=== PATIENT | female | born 1980 ===

== ENCOUNTER 2017-07-06 17:58 | Emergency (ER) | payer OTHER ==
[2017-07-06 18:13] VITALS: BMI 42.2
[2017-07-06 18:37] VITALS: RESP 20; O2SAT 100
--- NOTE | 2017-07-06 18:37 | C.PDOC ---
History Of Present Illness 37 year old female, who is currently ,LMP was 05/24 and presents to the ED for evaluation of vaginal spotting, right-sided flank pain, and increased urinary frequency which began a couple days ago. Patient states she was evaluated at her doctor's office last week, had a positive test, and underwent an ultrasound (results unknown). Patient notes her current bleeding is similar to that of her usual menstrual period and reports passing some clots. She denies passing any tissue material. Patient is and her LMP was 05/24. Patient denies fever, chills, nausea, and vomiting. Chief Complaint (Nursing): Female Genitourinary History Per: Patient History/Exam Limitations: no limitations Onset/Duration Of Symptoms: Days Current Symptoms Are (Timing): Still Present Quality Of Discomfort: "Pain" Associated Symptoms: Urinary Symptoms (urinary frequency ), Other (right flank pain ). denies: Fever, Chills, Nausea, Vomiting Additional History Per: Patient Abnormal Vaginal Bleeding: Yes Last Menstral Period: 05/24 : 2 Para: 1 Past Medical History Reviewed: Historical Data, Nursing Documentation, Vital Signs Vital Signs: Last Vital Signs Temp 98.9 F 07/06/17 21:54 Pulse 81 07/06/17 21:54 Resp 20 07/06/17 21:54 BP 103/69 07/06/17 21:54 Pulse Ox 100 07/06/17 21:54 - Medical History PMH: No Chronic Diseases Surgical History: No Surg Hx - [facility] Procedures EXTRACTION OF POC, LOW CERVICAL, OPEN APPROACH (04/23/16) Family History: States: Unknown Family Hx Review Of Systems Constitutional: Negative for: Fever, Chills Gastrointestinal: Negative for: Nausea, Vomiting Genitourinary: Positive for: Frequency, Other (vaginal spotting ) Musculoskeletal: Positive for: Other (right flank pain ) Physical Exam - Physical Exam Appears: Non-toxic, No Acute Distress Skin: Normal Color, Warm, Dry Head: Atraumatic, Normacephalic Eye(s): bilateral: Normal Inspection Oral Mucosa: Moist Neck: Supple Chest: Symmetrical, No Deformity, No Tenderness Cardiovascular: Rhythm Regular, No Murmur Respiratory: Normal Breath Sounds, No Rales, No Rhonchi, No Wheezing Gastrointestinal/Abdominal: Soft, No Tenderness, No Guarding, No Rebound, No Other (lower abdominal tenderness) Back: No CVA Tenderness, Other (minimal right flank discomfort ) Extremity: Normal ROM, Capillary Refill (less than 2 seconds ) Neurological/Psych: Oriented x3, Normal Speech, Normal Cognition ED Course And Treatment - Laboratory Results Result Diagrams: 07/06/17 19:02 07/06/17 19:02 Medical Decision Making Medical Decision Making: Impression: UTI vs threatened miscarriage Plan: * Bloodwork * urinalysis * OB Transvaginal Ultrasound * reassess and disposition Progress: Will repeat ultrasound and review lab results. Pt with empty uterus on ultrasound.Diif dx includes completed miscarriage versus ectopic.Pt was discussed with Dr Rodríguez who agrees pt can be discharged for f/u with PMD tomorrow.Pt told to come back immediately to the ED if she has any return of abd pain .Pt is currently pain free Disposition - Disposition Disposition: HOME/ ROUTINE Disposition Time: 21:12 Condition: FAIR Additional Instructions: See your hydraulic specialist tomorrow or see Dr Rodríguez tomorrow,If develope any worsening abd pain return to the ED immediately Prescriptions: Cephalexin [Keflex] 500 mg PO TID #21 capsule Instructions: Miscarriage, Ectopic , Dealing With Miscarriage Forms: [employer] ([place]er) Print Language: SUDANESE - Clinical Impression Clinical Impression: Miscarriage, Ectopic , UTI (urinary tract infection) - Scribe Statement The provider has reviewed the documentation as recorded by the Scribe (Radha Nowak) Provider Attestation: All medical record entries made by the Scribe were at my direction and personally dictated by me. I have reviewed the chart and agree that the record accurately reflects my personal performance of the history, physical exam, medical decision making, and the department course for this patient. I have also personally directed, reviewed, and agree with the discharge instructions and disposition.
[2017-07-06 19:06] LABS: BASO # 0.1 K/uL (0.0-0.2); BASO % 0.5 % (0.0-2.0); EOS # 0.2 K/uL (0.0-0.7); EOS % 1.6 % (0.0-4.0); HEMOGLOBIN 12.6 g/dL (11.0-16.0); LYMPH # 3.2 K/uL (1.0-4.3); LYMPH % 28.2 % (20.0-40.0); MEAN CELL VOLUME 85.5 fL (81.0-99.0); MEAN CORPUSCULAR HEMOGLOBIN 28.9 pg (27.0-31.0); MEAN CORPUSCULAR HGB CONC 33.8 g/dL (33.0-37.0); MEAN PLATELET VOLUME 7.8 fL (7.2-11.7); MONO # 0.5 K/uL (0.0-0.8); MONO % 4.5 % (0.0-10.0); NEUT # 7.5 K/uL (1.8-7.0); NEUT % 65.2 % (50.0-75.0); RBC 4.37 Mil/uL (3.80-5.20); RED CELL DISTRIBUTION WIDTH 13.9 % (11.5-14.5); WHITE BLOOD COUNT 11.5 K/uL (4.8-10.8)
[2017-07-06 19:12] LABS: SQUAMOUS EPITHIAL 8 /hpf (0-5); URINE BACTERIA FEW (<OCC); URINE BILIRUBIN NEGATIVE (NEGATIVE); URINE BLOOD 3+ (NEGATIVE); URINE CLARITY Hazy (Clear); URINE COLOR Red (YELLOW); URINE GLUCOSE (UA) NORMAL (Normal); URINE LEUKOCYTE ESTERASE 1+ Leu/uL (Negative); URINE NITRATE NEGATIVE (NEGATIVE); URINE PROTEIN 2+ mg/dL (NEGATIVE); URINE UROBILINOGEN NORMAL mg/dL (0.2-1.0)
[2017-07-06 19:19] LABS: ALB/GLOB RATIO 1.2 (1.0-2.1); ALBUMIN 3.8 g/dL (3.5-5.0); ALT/SGPT 68 U/L (9-52); AST/SGOT 32 U/L (14-36); BLOOD UREA NITROGEN 12 mg/dL (7-17); CALCIUM 9.1 mg/dl (8.6-10.4); GFR AFRICAN-AMERICAN > 60; GFR NON-AFRICAN AMERICAN > 60
--- NOTE | 2017-07-06 20:59 | US ---
EXAM: US , Transvaginal EXAM DATE/TIME: Exam ordered 07/06/2017 6:36 PM CLINICAL HISTORY: 37 years old, female; Pain; complicated by abdominal or pelvic pain; Lower; First trimester; Gestational age or lmp: 05/24/17; ; Additional info: Vag bleeding, pain TECHNIQUE: Real-time transvaginal obstetrical ultrasound of the maternal pelvis and a first trimester with image documentation. Transvaginal imaging was used for better evaluation of the fetus and adnexa. COMPARISON: US - TRANSVAGINAL 2017-07-03 08:13 FINDINGS: Gestation: None Uterus/cervix: Fluid within the endocervical canal at lines a.m. echogenic structure which appears contiguous with the endometrium. The uterus measures 10.3 x 5.7 x 5.8 cm. The endometrial stripe measures 1.4 cm in thickness. The posterior corpus subcapsular fibroid measures 1.4 x 1 x 1.1 cm. A right lateral corpus intramural fibroid measures 1.3 x 1 x 1 cm. Ovaries: The right ovary measures 2.8 x 1.7 x 2.6 cm. complex follicle measuring 1.1 cm seen in the right ovary. This likely represents a corpus luteum cyst Blood flow is seen in the right ovary on color Doppler and pulsed Doppler examination. The left ovary measures 2 x 1.3 x 1.8 cm. Subcentimeter follicles are present. Blood flow seen in the left ovary on color Doppler examination. Free fluid: A small amount of free fluid is noted the anterior to the uterine fundus. IMPRESSION: 1. No evidence of intrauterine . Empty uterus in the face of positive beta hCG suggests the possibility of a recent miscarriage, normal early intrauterine or ectopic . Serial beta-hCG measurement recommended. 2. Echogenic polypoid structure outlined by fluid in the endocervical canal. This could represent a clot (is avascular on color Doppler examination) or in progress. .
[2017-07-06 21:54] VITALS: BP 103/69; PULSE 81; TEMP 98.9
== END 2017-07-06 21:54 | disposition home or self-care (01) ==
LOC: C.ER 17:58
DX: O00.90 Unspecified ectopic pregnancy without intrauterine pregnancy (principal); O03.88 Urinary tract infection following complete or unspecified spontaneous abortion

== ENCOUNTER 2018-07-08 16:39 | Outpatient (CLI) | payer OTHER | END 2018-07-08 16:40 | disposition home or self-care (01) | LOC: C.LAB 16:39 | DX: O09.522 Supervision of elderly multigravida, second trimester (principal) ==